=== PATIENT | female | born 1945 | race Hispanic/Latino ===

== ENCOUNTER → 2018-09-10 | Outpatient (CLI) | payer MEDICARE, OTHER ==
[~2018-09-10] MED LIST: BENICAR HCT 401 EAC1 PO; CARVEDILOL25 MG PO; COREG6.25 MG PO; CYMBALTA; LEVEMIR 3M100 UNITS/ SQ; METFORMIN HCL500 MG PO; NOVOLOG100 UNIT/1 SQ; ZOCOR20 MG PO
--- NOTE | 2018-09-11 08:09 | Diagnostic Imaging Report ---
EXAMINATION: Thyroid ultrasound. CLINICAL HISTORY: Thyroid nodule COMPARISON: None. . DISCUSSION: Transverse and longitudinal images of the thyroid were obtained utilizing grayscale and color Doppler modalities. The right thyroid lobe measures 4.6 x 1.7 x 1.9 cm and shows normal echogenicity. Nodules: Upper pole simple cyst measures 0.2 x 0.2 x 0.2 cm. Interpolar 0.7 x 1 x 0.8 cm, mixed cystic and solid (1.), Hypoechoic (2), wider than tall (0), smoothly marginated (0), no echogenic foci (0), TR 3 Lower pole 1.2 x 0.9 x 1 cm, solid (2), isoechoic (1), wider than tall (0), smoothly marginated (0), no echogenic foci (0), TR 3 The left thyroid lobe measures 3.8 x 1.6 x 1.5 cm and shows normal echogenicity. Nodules: Lower pole 0.3 x 0.4 x 0.4 cm, mixed cystic and solid (1), isoechoic (1), wider than tall (0), smoothly marginated (0), no echogenic foci (0) TR 2 The thyroid isthmus measures 0.4 cm and shows normal echogenicity. No nodules are seen. There is no adenopathy. IMPRESSION: Bilateral thyroid nodules as above, none of which meet sonographic criteria for percutaneous sampling per ACR recommendations. Signed by: Dr. Berto Puga M.D. on 09/11/2018 8:05 AM
== END ==
LOC: US 08:36
PROVIDERS: ATTEND Family Medicine
DX: E04.2 Nontoxic multinodular goiter (principal)
CPT/HCPCS: 76536

== ENCOUNTER → 2019-07-29 | Outpatient (CLI) | payer MEDICARE, OTHER ==
--- NOTE | 2019-07-29 10:54 | Diagnostic Imaging Report ---
TECHNIQUE: Grayscale and color Doppler ultrasound of the thyroid. HISTORY: ^THYROID NODULE. COMPARISON: 09/10/2018. FINDINGS: Right thyroid: Measures 5.0 x 1.3 x 2.2 cm. No lymphadenopathy. Stable Nodule(s) - location, size, composition, echogenicity, margin, echogenic foci: -Upper pole 1.3 x 0.8 x 1.1 cm, mixed cystic and solid, isoechoic, without calcification, TR 2. -Lower pole 1.5 x 1.1 x 1.5 cm, solid, hypoechoic, irregular margin, without calcification, TR 4. Left thyroid: Measures 4.4 x 1.6 x 1.7 cm. No lymphadenopathy. Nodule(s) - location, size, composition, echogenicity, margin, echogenic foci: Questionable lower pole 1.2 x 0.9 x 1.1 cm, solid, isoechoic, irregular margin, no calcification, TR 4. Isthmus: Measures 0.3 cm in thickness. Nodule(s) - location, size, composition, echogenicity, margin, echogenic foci: None. IMPRESSION: 1. Right thyroid lobe lower loop pole 1.5 cm solid nodule (TR 4) meets criterion for FNA. 2. Additional nodules as described above. Recommend follow-up ultrasound in one year per ACR TI-RADS. Signed by: Boone Monteiro MD on 07/29/2019 10:50 AM
== END ==
LOC: US 09:32
PROVIDERS: ATTEND Family Medicine
DX: E04.2 Nontoxic multinodular goiter (principal)
CPT/HCPCS: 76536

== ENCOUNTER → 2019-09-15 | Outpatient (CLI) | payer MEDICARE, OTHER ==
[~2019-09-15] MED LIST changes: +LIDOCAINE HCL 1% LOCAL INJ 20 ML VIAL ONE
--- NOTE | 2019-09-15 16:11 | Diagnostic Imaging Report ---
PROCEDURE: Ultrasound-guided biopsy Procedural Personnel Attending physician(s): Donnell Raymond MD Fellow physician(s): None Resident physician(s): None Advanced practice provider(s): None Pre-procedure diagnosis: Right thyroid nodule Post-procedure diagnosis: Same Indication: Histopathologic diagnosis Previous biopsy of same target (QCDR): No Additional clinical history: None Complications: No immediate complications. IMPRESSION: Ultrasound-guided biopsy of Right thyroid nodule. Plan: Specimen(s) sent for evaluation. PROCEDURE SUMMARY: - Percutaneous US-guided FNA biopsy - Additional procedure(s): None PROCEDURE DETAILS: Pre-procedure Reference imaging for biopsy target: Thyroid ultrasound 07/29/2019 Consent: Informed consent for the procedure including risks, benefits and alternatives was obtained and time-out was performed prior to the procedure. Preparation: The site was prepared and draped using maximal sterile barrier technique including cutaneous antisepsis. Anesthesia/sedation Level of anesthesia/sedation: No sedation Anesthesia/sedation administered by: Independent trained observer under attending supervision with continuous monitoring of the patient?s level of consciousness and physiologic status Total intra-service sedation time (minutes): 30 Imaging prior to biopsy The patient was positioned supine. Initial ultrasound was performed. Biopsy target: - Maximal diameter (cm): 1.5 - Location: Right thyroid lower pole Other findings: None Biopsy Local anesthesia was administered. Under US guidance, the biopsy needle was advanced to the target and biopsy was performed. Coaxial needle: NA Fine needle aspiration device: Chiba Fine needle size: 22g Number of FNA specimens: 4 On-site biopsy touch preparation: Yes Additional sampling recommendations: None Preliminary assessment of sample adequacy: Adequate Needle removal The biopsy needle was removed and a sterile dressing was applied. Tract embolization: None Imaging following biopsy Immediate post-biopsy ultrasound was performed. Post-biopsy imaging findings: No hematoma Additional Details Additional description of procedure: None Equipment details: None Specimens removed: Biopsy samples as detailed above Estimated blood loss (mL): Less than 10 Standardized report: [id number] Attestation Signer name: Donnell Raymond MD I attest that I was present for the entire procedure. I reviewed the stored images and agree with the report as written. Signed by: Donnell Raymond MD on 09/15/2019 4:08 PM
== END ==
LOC: US 12:49
PROVIDERS: ATTEND Internal Medicine Endocrinology, Diabetes & Metabolism
DX: E04.2 Nontoxic multinodular goiter (principal)
CPT/HCPCS: 10005; 87635; 88172; 88173; 88305; J2001

== ENCOUNTER 2019-12-01 11:18 | Emergency (ER) | payer MEDICARE, OTHER ==
[~2019-12-01] VITALS: Ht 160 cm; Wt 97.5 kg
[~2019-12-01 11:18] MED LIST changes: -LIDOCAINE HCL 1% LOCAL INJ 20 ML VIAL ONE
[2019-12-01] MEDS ORDERED: PANTOPRAZOLE 40 MG 10ML VIAL IV STA (11:38)
[2019-12-01] MEDS ORDERED: ONDANSETRON HCL INJ 2MG/ML 2ML 2 MG/ML VIAL IV STA (11:38)
[2019-12-01] MEDS ORDERED: SODIUM CHLORIDE 0.9% 1000ML 1,000 ML IV STA (11:38)
[2019-12-01 12:03] LABS: BASOPHILS # (AUTO) 0.1 (0.0-0.1); BASOPHILS % 0.3 % (0.0-1.0); EOSINOPHILS % 0.1 % (0.0-6.0); HEMATOCRIT 26.3 % (34.2-44.1); LYMPHOCYTES % 12.9 % (18.0-39.1); MEAN CORPUSCULAR HEMOGLOBIN 21.2 pg (28-32); MEAN CORPUSCULAR HGB CONC 30.4 g/dL (31-35); MEAN CORPUSCULAR VOLUME 69.8 fL (81-99); MONOCYTES # (AUTO) 1.1 (0.2-0.8); MONOCYTES % 4.7 % (4.4-11.3); NEUTROPHILS # (AUTO) 18.6 (2.1-6.9); PLATELET COUNT 755 x10e3/uL (140-360); RED BLOOD COUNT 3.77 x10e6/uL (3.6-5.1)
--- NOTE | 2019-12-01 12:06 | Diagnostic Imaging Report ---
EXAMINATION: CHEST SINGLE (PORTABLE) INDICATION: Abdominal pain. Weakness. ^ABD PAIN ^[id number] ^[id number] COMPARISON: None FINDINGS: TUBES and LINES: None. LUNGS: Lungs are well inflated. Lungs are clear. There is no evidence of pneumonia or pulmonary edema. PLEURA: No pleural effusion or pneumothorax. HEART AND MEDIASTINUM: The cardiomediastinal silhouette is unremarkable. BONES AND SOFT TISSUES: No acute osseous lesion. Soft tissues are unremarkable. UPPER ABDOMEN: No free air under the diaphragm. IMPRESSION: No acute thoracic abnormality. Signed by: Dr. Dominick Velasco M.D. on 12/01/2019 12:03 PM
[2019-12-01] MEDS ORDERED: DIATRIZOATE MEGL/DIATRIZOA SOD 30 ML BTL PO ONE (12:13)
[2019-12-01 12:17] LABS: INR 1.16; PROTHROMBIN TIME 15.4 seconds (11.9-14.5)
[2019-12-01 12:18] LABS: PARTIAL THROMBOPLASTIN TIME 38.7 seconds (23.8-35.5)
[2019-12-01 12:26] LABS: ALANINE AMINOTRANSFERASE 16 IU/L (0-55); ALBUMIN 2.3 g/dL (3.5-5.0); ALBUMIN/GLOBULIN RATIO 0.6 (0.8-2.0); ALKALINE PHOSPHATASE 169 IU/L (40-150); ANION GAP 13.1 mmol/L (8-16); BLOOD UREA NITROGEN 18 mg/dL (7-26); BUN/CREATININE RATIO 25 (6-25); CALCIUM 7.6 mg/dL (8.4-10.2); CARBON DIOXIDE 19 mmol/L (22-29); CHLORIDE 103 mmol/L (98-107); CREATINE KINASE 10 IU/L (29-168); CREATININE, SERUM 0.71 mg/dL (0.57-1.11); EST GLOMERULAR FILTRATION RATE > 60 ML/MIN (60-); GLUCOSE 143 mg/dL (74-118); MAGNESIUM 1.9 MG/DL (1.3-2.1); POTASSIUM 3.1 mmol/L (3.5-5.1); SODIUM 132 mmol/L (136-145)
[2019-12-01 12:36] LABS: BILIRUBIN,URINE SMALL (NEGATIVE); CLARITY,URINE TURBID (CLEAR); COLOR,URINE YELLOW (YELLOW); KETONES,URINE NEGATIVE (NEGATIVE); LEUKOCYTE ESTERASE ,URINE LARGE (NEGATIVE); NITRITE,URINE POSITIVE (NEGATIVE); PROTEIN,URINE DIPSTICK >=300 (NEGATIVE); URINE UROBILINOGEN 1 mg/dL (0.2 - 1)
[2019-12-01 12:38] LABS: BACTERIA,URINE MANY /HPF; EPITHELIAL CELLS,URINE FEW /LPF; RBC,URINE 21-50 /HPF (0-5); WBC,URINE (MAN) >50 /HPF (0-5)
--- NOTE | 2019-12-01 12:48 | Emergency Department Note ---
History of Present Illnes History of Present Illness Chief Complaint: Abdominal Complaints History of Present Illness This is a 74 year old female ABD PAIN AND WEAK, DIARRHEA X 5 WEEKS. AAOX4. 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 Historian: Patient, Family Member Arrival Mode: [facility] EMS Treatment FOLDER AND NOTCHER: See EMS Report Additional Treatment FOLDER AND NOTCHER: A52 Maitre D' Required: No Onset (how long ago): week(s) (5) Location: LEFT ABD Quality: PAIN Radiation: Reports non-radiation Severity: moderate Onset quality: gradual Timing of current episode: constant Progression: waxing and waning Chronicity: new Relieving factors: none Exacerbating factors: none Associated symptoms: Reports other (NAUSEA, DIARRHEA, WEAKNESS) Past Medical/Family History Physician Review I have reviewed the patient's past medical and family history. Any updates have been documented here. Past Medical History Recent Fever: No Clinical Suspicion of Infectio: No New/Unexplained Change in Ment: No Past Medical History: Hypertension, Diabetes, Liver Disease, Hyperlipedemia Other Medical History: HIGH CHOLESTEROL, LIVER Past Surgical History: , Hernia Repair Other Surgery: C SECT AND HERNIA X 2 Social History Smoking Cessation: Unknown if ever smoked Counseling Performed: No Alcohol Use: None Any Illegal Drug Use: No TB Exposure/Symptoms: No Physically hurt or threatened: No Family History Family history of heart diseas: No Other Last Tetanus: OOD Any Pre-Existing Lines (PICC,: No Review of Systems Review of Systems Constitutional: Reports as per HPI, Reports weakness EENTM: Reports no symptoms Cardiovascular: Reports no symptoms Respiratory: Reports no symptoms Gastrointestinal: Reports as per HPI Genitourinary: Reports no symptoms Musculoskeletal: Reports no symptoms Integumentary: Reports no symptoms Neurological: Reports no symptoms Psychological: Reports no symptoms Endocrine: Reports no symptoms Hematological/Lymphatic: Reports no symptoms Physical Exam Related Data Allergies: Coded Allergies: No Known Allergies (Unverified , 06/25/13) Triage Vital Signs Vital Signs Date Time Temp Pulse Resp B/P (MAP) Pulse Ox O2 Delivery O2 Flow Rate FiO2 12/01/19 11:35 96.3 117 18 118/65 100 Room Air Vital signs reviewed: Yes Physical Exam CONSTITUTIONAL Constitutional: Present well-developed, Present well-nourished HENT HENT: Present normocephalic, Present atraumatic, Present mucosae dry, Present nose normal HENT L/R: Present left ext ear normal, Present right ext ear normal EYES Eyes: Reports PERRL, Reports conjunctivae normal NECK Neck: Present ROM normal PULMONARY Pulmonary: Present effort normal, Present breath sounds normal CARDIOVASCULAR Cardiovascular: Present heart sounds normal, Present capillary refill normal, Present tachycardia GASTROINTESTINAL Abdominal: Present soft, Present bowel sounds normal, Present tender (MODERATE LUQ>LLQ WITHOUT R/G); Absent mass, Absent left CVA tenderness, Absent right CVA tenderness GENITOURINARY Genitourinary: Present exam deferred SKIN Skin: Present warm, Present dry MUSCULOSKELETAL Musculoskeletal: Present ROM normal; Absent edema NEUROLOGICAL Neurological: Present alert, Present oriented x 3, Present no gross motor or sensory deficits; Absent sensory deficit, Absent weakness PSYCHOLOGICAL Psychological: Present mood/affect normal, Present judgement normal Results Laboratory Result Diagram: 12/01/19 1130 12/01/19 1130 Laboratory Laboratory Tests Test 12/01/19 12:00 12/01/19 11:30 Urine Color Yellow (YELLOW) Urine Clarity Turbid (CLEAR) Urine pH 7 (5 - 7) Urine Specific [place] 1.025 (1.010-1.025) Urine Protein >=300 (NEGATIVE) Urine Glucose (UA) Negative (NEGATIVE) Urine Ketones Negative (NEGATIVE) Urine Blood Large (NEGATIVE) Urine Nitrite Positive (NEGATIVE) Urine Bilirubin Small (NEGATIVE) Urine Urobilinogen 1 mg/dL (0.2 - 1) Urine Leukocyte Esterase Large (NEGATIVE) Urine RBC 21-50 /HPF (0-5) Urine WBC >50 /HPF (0-5) Urine Epithelial Cells Few /LPF (NONE) Urine Bacteria Many /HPF (NONE) White Blood Count 22.99 x10e3/uL (4.8-10.8) Red Blood Count 3.77 x10e6/uL (3.6-5.1) Hemoglobin 8.0 g/dL (12.0-16.0) Hematocrit 26.3 % (34.2-44.1) Mean Corpuscular Volume 69.8 fL (81-99) Mean Corpuscular Hemoglobin 21.2 pg (28-32) Mean Corpuscular Hemoglobin Concent 30.4 g/dL (31-35) Red Cell Distribution Width 23.0 % (11.7-14.4) Platelet Count 755 x10e3/uL (140-360) Neutrophils (%) (Auto) 81.0 % (38.7-80.0) Lymphocytes (%) (Auto) 12.9 % (18.0-39.1) Monocytes (%) (Auto) 4.7 % (4.4-11.3) Eosinophils (%) (Auto) 0.1 % (0.0-6.0) Basophils (%) (Auto) 0.3 % (0.0-1.0) Neutrophils # (Auto) 18.6 (2.1-6.9) Lymphocytes # (Auto) 3.0 (1.0-3.2) Monocytes # (Auto) 1.1 (0.2-0.8) Eosinophils # (Auto) 0.0 (0.0-0.4) Basophils # (Auto) 0.1 (0.0-0.1) Absolute Immature Granulocyte (auto 0.24 x10e3/uL (0-0.1) Prothrombin Time 15.4 seconds (11.9-14.5) Prothromb Time International Ratio 1.16 Activated Partial Thromboplast Time 38.7 seconds (23.8-35.5) Sodium Level 132 mmol/L (136-145) Potassium Level 3.1 mmol/L (3.5-5.1) Chloride Level 103 mmol/L (98-107) Carbon Dioxide Level 19 mmol/L (22-29) Anion Gap 13.1 mmol/L (8-16) Blood Urea Nitrogen 18 mg/dL (7-26) Creatinine 0.71 mg/dL (0.57-1.11) Estimat Glomerular Filtration Rate > 60 ML/MIN (60-) BUN/Creatinine Ratio 25 (6-25) Glucose Level 143 mg/dL (74-118) Calcium Level 7.6 mg/dL (8.4-10.2) Magnesium Level 1.9 MG/DL (1.3-2.1) Total Bilirubin 0.8 mg/dL (0.2-1.2) Aspartate Amino Transf (AST/SGOT) 16 IU/L (5-34) Alanine Aminotransferase (ALT/SGPT) 16 IU/L (0-55) Alkaline Phosphatase 169 IU/L (40-150) Creatine Kinase 10 IU/L (29-168) Creatine Kinase MB 0.40 ng/mL (0-5.0) Troponin I 0.008 ng/mL (0-0.300) Total Protein 6.3 g/dL (6.5-8.1) Albumin 2.3 g/dL (3.5-5.0) Globulin 4.0 g/dL (2.3-3.5) Albumin/Globulin Ratio 0.6 (0.8-2.0) Lab results reviewed: Yes Imaging Imaging results reviewed: Yes Procedures 12 Lead ECG Interpretation ECG Interpretation : ECG: ECG 1 Maitre D': Interpreted by ED physician Date: Dec 01, 2019 Time: 12:00 Rhythm: sinus tachycardia Rate: tachycardia BPM: 109 QRS axis: normal Conduction: right bundle branch block T wave inversion: II, III, V1, V2, V3, V4, V5 T waves flattening: aVF, V6 Clinical Impression: abnormal ECG Critical Care Time Total Critical Care Time (min): 45 Critical care time exclusive o: separately billable procedures Critcal care necessary due to: sepsis Critcal care time spent by me: evaluation patient response to tx, examination of patient, order/perform tx or interventions, order/review laboratory studies, order/review radiographic studies, re-evaluation of patient condition Assessment & Plan Medical Decision Making MDM LLQ ABD PAIN AND DIARRHEA X 5 WEEKS, TACHYCARDIC - CBC, CHEM, ECG, CARDIACS, LIPASE, BLOOD CX'S, LACTIC, CXR, CT ABD/PELVIS, UA/CX - EVAL DIVERTICULITIS, MASS, SEPSIS, STEMI/NSTEMI, PANCREATITIS, COLITIS, UTI/PYELONEPHRITIS Reassessment Reassessment POSSIBLE SEPSIS WITH SOURCE INTRA-ABDOMINAL OR UTI, SIRS CRITERIA OF WBC>12K AND TACHYCARDIA HR>90, IVF'S GIVEN, ZOSYN GIVEN, LACTIC 1.5, HOSPITAL CURRENTLY FULL AND SINCE WE HAVE NO ORDER ADMINISTRATOR SERVICES AVAILABLE I THINK BEST OPTION FOR PT IS TO TRANSFER - WILL INITIATE TRANSFER. [id number] - I SPOKE WITH SURGEON, DR GONZALEZ, AT [facility] WHO WANTS THE HOSPITALIST TO ACCEPT PT TO STEP-DOWN BED. 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 (5) Perforation bowel Depart Disposition: TRANS TO OTHER [facility] Last Vital Signs Date Time Temp Pulse Resp B/P (MAP) Pulse Ox O2 Delivery O2 Flow Rate FiO2 12/01/19 12:12 112 18 125/63 100 Room Air 12/01/19 11:35 96.3 Home Meds Reported Medications Insulin Aspart (NOVOLOG) 100 Unit/1 Ml Cartridge, 12 UNITS SQ AC 06/28/13 Insulin Detemir* (LEVEMIR 3ML FLEXPEN*) 100 Units/Ml Inj, 30 UNITS SQ HS 06/28/13 Simvastatin (ZOCOR) 20 Mg Tablet, 20 MG PO BEDTIME 06/28/13 Carvedilol (COREG) 6.25 Mg Tab, 6.25 MG PO BID 06/28/13 [Cymbalta] No Conflict Check 06/26/13 Metformin Hcl (METFORMIN HCL) 500 Mg Tablet, 500 MG PO DAILY 06/26/13 Olmesartan/Hydrochlorothiazide (BENICAR HCT 40-25 MG TABLET) 1 Each Tablet, 1 TAB PO DAILY 06/25/13 Medications in the ED Pantoprazole Sodium 40 mg ONCE STAT IV Last administered on 12/01/19at 12:11; Admin Dose 40 MG; Start 12/01/19 at 11:38; Stop 12/01/19 at 11:46; Status DC Ondansetron HCl 4 mg ONCE STAT IV Last administered on 12/01/19at 12:11; Admin Dose 4 MG; Start 12/01/19 at 11:38; Stop 12/01/19 at 11:46; Status DC Sodium Chloride 1,000 ml @ 0 mls/hr Q0M STAT IV Last administered on 12/01/19at 12:11; Admin Dose 1,000 MLS/HR; Start 12/01/19 at 11:38; Stop 12/01/19 at 11:43; Status DC Diatrizoate Meglum/ Diatrizoate Sod 30 ml STK-MED ONCE PO ; Start 12/01/19 at 12:13; Stop 12/01/19 at 12:07; Status DC BRADLEY DESIR MD Dec 01, 2019 12:48
--- NOTE | 2019-12-01 12:51 | NUR ---
green sheet already on chart per policy/protocol on arrival.
[2019-12-01 12:56] LABS: LIPASE < 4 U/L (8-78)
[2019-12-01] MEDS ORDERED: PIPER-TAZ 3.375 GM 50 ML IV SCH (13:30)
--- NOTE | 2019-12-01 13:51 | Diagnostic Imaging Report ---
EXAM: CT Abdomen and Pelvis WITH intravenous contrast INDICATION: Abdominal pain COMPARISON: CT abdomen and pelvis 12/30/2018 TECHNIQUE: Abdomen and pelvis were scanned utilizing a multidetector helical scanner from the lung base to the pubic symphysis after administration of IV contrast. Coronal and sagittal reformations were obtained. Routine protocol was performed. Scan was performed during portal venous phase. IV CONTRAST: 100mL of Isovue 370 ORAL CONTRAST: Gastrografin RADIATION DOSE: Total DLP: 396 mGy*cm Dose modulation, iterative reconstruction, and/or weight based adjustment of the mA/kV was utilized to reduce the radiation dose to as low as reasonably achievable. FINDINGS: LOWER THORAX: Normal. HEPATOBILIARY: Severe diffuse hepatic steatosis. No focal liver lesion. No biliary ductal dilation. Unremarkable gallbladder. SPLEEN: No splenomegaly. PANCREAS: No focal masses or ductal dilatation. ADRENALS: No adrenal nodules. KIDNEYS/URETERS: No hydronephrosis, stones, or solid mass lesions. PELVIC ORGANS/BLADDER: Ill-defined heterogeneously enhancing masslike wall thickening of the sigmoid colon which extends into the uterine fundus with areas of internal hypodensity possibly representing necrosis. A contained retroperitoneal perforation with air and fluid tracks into the anterior pelvis. The heterogenous mass component also appears to communicate with the dome of the bladder, suggestive of fistula. Bonilla catheter in the bladder. PERITONEUM / RETROPERITONEUM: No free air or fluid. LYMPH NODES: No lymphadenopathy. VESSELS: Mild atherosclerotic calcifications of the nonaneurysmal abdominal aorta and major branches. GI TRACT: Extensive diverticulosis. See Pelvic organs/bladder. BONES AND SOFT TISSUES: No acute osseous injury. No suspicious lytic or blastic lesions. IMPRESSION: Ill-defined heterogeneously enhancing masslike wall thickening of the sigmoid colon which extends into the uterine fundus with areas of internal hypodensity possibly representing necrosis. A contained retroperitoneal perforation with air and fluid tracks into the anterior pelvis. The heterogenous mass component also appears to communicate with the dome of the bladder, suggestive of fistula. 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 Less likely possibilities include severe perforated diverticulitis with fistulization to the bladder and uterus or primary uterine malignancy with local invasion of the adjacent colon and bladder. Severe diffuse hepatic steatosis. Signed by: Donnell Raymond MD on 12/01/2019 1:47 PM
[2019-12-01] MEDS ORDERED: SODIUM CHLORIDE 0.9% 1000ML 1,000 ML ONE (13:52)
[2019-12-01] MEDS ORDERED: IOPAMIDOL 370 MG/ML 200 ML INFUS..BTL INJ ONE (13:58)
[2019-12-01] MEDS ORDERED: SODIUM CHLORIDE 0.9% 50ML 50 ML ONE (13:58)
--- NOTE | 2019-12-01 14:00 | NUR ---
briseida doing transfer (house sup)
--- NOTE | 2019-12-01 14:01 | NUR ---
type and screen done
[2019-12-01] MEDS ORDERED: METRONIDAZOLE 500MG/NS 100ML 100 ML IV ONE (14:15)
--- NOTE | 2019-12-01 14:18 | NUR ---
[facility] on [facility]
--- NOTE | 2019-12-01 15:22 | NUR ---
report attempted to [facility], nurse on phone interupted and after name given and 30 seconds into report, nurse could only ask regarding covid and not wanting pt on that unit. rn called back to [facility] transfer center explaining concerns and per docent coordinator, okay to send pt to [facility]. [place] [facility] [place] (me[place] i will gladly give report to someone if they care to take report at any time. ems enroute to get pt.
== END 2019-12-01 15:55 | disposition short-term general hospital (02) ==
LOC: ER 12:04
DX: K57.20 Diverticulitis of large intestine with perforation and abscess without bleeding (principal); N32.1 Vesicointestinal fistula; N39.0 Urinary tract infection, site not specified; R10.32 Left lower quadrant pain; E11.65 Type 2 diabetes mellitus with hyperglycemia; R53.1 Weakness; I10 Essential (primary) hypertension
CPT/HCPCS: 36415; 71045; 74177; 80053; 81001; 82550; 82553; 83605; 83690; 83735; 84484; 85025; 85610; 85730; 86850; 86900; 87040; 87086; 87186; 93005; 99284; C9113; J2405; J2543; J7030; Q9967